=== PATIENT | female | born 1950 | race American Indian/Alaskan Native ===

== ENCOUNTER 2020-07-24 23:39 | Emergency (ER) | payer MEDICARE ==
[2020-07-25] MEDS ORDERED: LIDOCAINE VISCOUS 2% 15 ML ORAL LIQD PO ONE (01:30)
[2020-07-25] MEDS ORDERED: ACETAMINOPHEN 500 MG TAB PO ONE ×2 (01:31→02:27)
[2020-07-25] MEDS ORDERED: AMOXICILLIN/K CLAV 875/125MG TAB PO ONE (01:31)
--- NOTE | 2020-07-25 01:36 | Emergency Department Report ---
ED General Adult HPI - General Chief complaint: Sore Throat Stated complaint: SORE THROAT Source: patient Mode of arrival: Ambulatory Limitations: No Limitations - History of Present Illness Initial comments: Patient is a 70-year-old -[place] female with a history of hypertension, [id number] diabetes, asthma and hyperlipidemia who presents to the ED with complaint of acute onset persistent sore throat with dysphagia for the last 2 days. Patient states that she has not been able to eat anything because of worsening sore throat and dysphagia. Patient denies dyspnea, nausea, vomiting, chest pain, headache, dizziness, fever and chills, cough, abdominal pain, vision changes, nasal and sinus congestion, abdominal pain and traumatic injury. MD Complaint: Sore throat, dysphagia -: Sudden, days(s) (2) Location: mouth Radiation: non-radiation Severity scale (0 -10): 7 Quality: aching, sharp Improves with: none Worsens with: eating Associated Symptoms: denies other symptoms. denies: confusion, chest pain, cough, diaphoresis, fever/chills, headaches, loss of appetite, malaise, nausea/vomiting, rash, seizure, shortness of breath, syncope, weakness, other Treatments Prior to Arrival: none - Related Data Previous Rx's Medication Instructions Recorded Last Taken Type Acetaminophen [Tylenol] 500 mg PO Q6HR PRN #30 tablet 07/25/20 Unknown Rx Azithromycin [Zithromax Z-MARIALUISA] 250 mg PO DAILY #6 tablet 07/25/20 Unknown Rx Lidocaine Viscous 2% 10 ml PO Q4H PRN #120 ml 07/25/20 Unknown Rx Allergies Allergy/AdvReac Type Severity Reaction Status Date / Time aspirin Allergy Anaphylaxis Verified 07/24/20 23:47 sulfamethoxazole Allergy Anaphylaxis Verified 07/24/20 23:47 [From Bactrim] trimethoprim [From Bactrim] Allergy Anaphylaxis Verified 07/24/20 23:47 ED Review of Systems ROS: Stated complaint: SORE THROAT Other details as noted in HPI Constitutional: denies: chills, fever Eyes: denies: eye pain, eye discharge, vision change ENT: throat pain, other (dysphagia). denies: ear pain Respiratory: denies: cough, shortness of breath, wheezing Cardiovascular: denies: chest pain, palpitations Endocrine: no symptoms reported Gastrointestinal: denies: abdominal pain, nausea, diarrhea Genitourinary: denies: urgency, dysuria, discharge Musculoskeletal: denies: back pain, joint swelling, arthralgia Skin: denies: rash, lesions Neurological: denies: headache, weakness, paresthesias Psychiatric: denies: anxiety, depression Hematological/Lymphatic: denies: easy bleeding, easy bruising ED Past Medical Hx - Past Medical History Hx Hypertension: Yes Hx Diabetes: Yes Hx Asthma: Yes Additional medical history: high cholesterol - Surgical History Past Surgical History?: No Additional Surgical History: Stent right leg, C-sec x 1 - Social History Smoking Status: Never Smoker Substance Use Type: None - Medications Home Medications: Home Medications Medication Instructions Recorded Confirmed Last Taken Type Acetaminophen [Tylenol] 500 mg PO Q6HR PRN #30 tablet 07/25/20 Unknown Rx Azithromycin [Zithromax Z-MARIALUISA] 250 mg PO DAILY #6 tablet 07/25/20 Unknown Rx Lidocaine Viscous 2% 10 ml PO Q4H PRN #120 ml 07/25/20 Unknown Rx ED Physical Exam - General Limitations: No Limitations General appearance: alert, in no apparent distress - Head Head exam: Present: atraumatic, normocephalic, normal inspection - Eye Eye exam: Present: normal appearance, PERRL, EOMI Pupils: Present: normal accommodation - ENT ENT exam: Present: mucous membranes moist, TM's normal bilaterally, normal external ear exam, other (Erythematous oropharynx, no peritonsillar abscess) - Neck Neck exam: Present: normal inspection, full ROM, lymphadenopathy - Respiratory Respiratory exam: Present: normal lung sounds bilaterally. Absent: respiratory distress, wheezes, rales, rhonchi, stridor, chest wall tenderness, accessory muscle use - Cardiovascular Cardiovascular Exam: Present: regular rate, normal rhythm, normal heart sounds. Absent: systolic murmur, diastolic murmur, rubs, gallop - GI/Abdominal GI/Abdominal exam: Present: soft, normal bowel sounds. Absent: tenderness, guarding, rebound, hyperactive bowel sounds, hypoactive bowel sounds, mass - Extremities Exam Extremities exam: Present: normal inspection, full ROM, normal capillary refill - Back Exam Back exam: Present: normal inspection, full ROM. Absent: tenderness, CVA tenderness (R), CVA tenderness (L), muscle spasm, paraspinal tenderness, vertebral tenderness - Neurological Exam Neurological exam: Present: alert, oriented X3, CN II-XII intact, normal gait, reflexes normal - Psychiatric Psychiatric exam: Present: normal affect, normal mood - Skin Skin exam: Present: warm, dry, intact, normal color. Absent: rash ED Course Vital Signs 07/24/20 23:48 Temperature 98.7 F Pulse Rate 86 Respiratory 18 Rate Blood Pressure 197/81 O2 Sat by Pulse 96 Oximetry ED Medical Decision Making - Medical Decision Making This is a 70-year-old -[place] female with a history of hypertension, [id number] diabetes, asthma and hyperlipidemia who presents to the ED with complaint of acute onset persistent sore throat with dysphagia for the last 2 days. Patient states that she has not been able to eat anything because of worsening sore throat and dysphagia. In the ED, patient is alert and oriented x3 without any distress but is hypertensive in triage. Patient was treated for pain with medications, and was given initial oral antibiotics. On reevaluation, patient's pain is well controlled with medications. Patient was discharged home on medications including antibiotics and advised to follow-up with her primary care physician in 5 to 7 days for reevaluation or return to the ED immediately if symptoms get worse. - Differential Diagnosis strep pharyngitis; Tonsillitis; URI; Bronchitis; Sinusitis Critical care attestation.: If time is entered above; I have spent that time in minutes in the direct care of this critically ill patient, excluding procedure time. ED Disposition Clinical Impression: Acute bacterial pharyngitis, Acute bacterial tonsillitis Disposition: TO HOME OR SELFCARE Is pt being admited?: No Does the pt Need Aspirin: No Condition: Stable Instructions: Sore Throat, [id number], Pharyngitis, [id number] Additional Instructions: Take medication with food, drink plenty of fluids and follow-up with your primary care physician in 7 to 10 days for reevaluation. Return to the ED immediately if symptoms get worse. Prescriptions: Acetaminophen [Tylenol] 500 mg PO Q6HR PRN #30 tablet PRN Reason: Pain , Severe (7-10) Lidocaine Viscous 2% 10 ml PO Q4H PRN #120 ml PRN Reason: Sore Throat Azithromycin [Zithromax Z-MARIALUISA] 250 mg PO DAILY #6 tablet Referrals: [facility] [Provider Group] - 7-10 days Time of Disposition: 01:33 Print Language: CHINESE
[2020-07-25 02:52] VITALS: BP 175/79
== END 2020-07-25 02:10 | disposition home or self-care (01) ==
LOC: ED 23:39
DX: J03.80 Acute tonsillitis due to other specified organisms (principal); B96.89 Other specified bacterial agents as the cause of diseases classified elsewhere; I10 Essential (primary) hypertension; E11.9 Type 2 diabetes mellitus without complications; J45.909 Unspecified asthma, uncomplicated; Z98.890 Other specified postprocedural states; Z79.2 Long term (current) use of antibiotics; Z79.899 Other long term (current) drug therapy; Z88.8 Allergy status to other drugs, medicaments and biological substances
CPT/HCPCS: 99282